=== PATIENT | male | born 1975 | race Two or more races ===

== ENCOUNTER 2021-07-29 04:13 | Emergency (ER) | payer OTHER ==
[~2021-07-29] VITALS: Ht 152.4 cm; Wt 70.3 kg
[2021-07-29] MEDS ORDERED: PRILOSEC OTC20 MG (04:23)
== END 2021-07-29 10:01 | disposition home or self-care (01) ==
LOC: ER 04:13
DX: K80.20 Calculus of gallbladder without cholecystitis without obstruction (principal)